=== PATIENT | female | born 1990 | race Two or more races ===

== ENCOUNTER 2023-10-03 13:23 | Emergency (ER) | payer OTHER ==
[~2023-10-03] VITALS: Ht 152.4 cm; Wt 64.9 kg
[2023-10-03 15:26] LABS: HEMATOCRIT 37.4 % (36.0-45.00); HEMOGLOBIN 13.2 g/dL (12.0-15.00); MEAN CELL VOLUME 88.3 fL (80.00-100.00); MEAN CORPUSCULAR HEMOGLOBIN 31.2 pg (27.00-32.0); MEAN CORPUSCULAR HGB CONC 35.3 g/dl (32.0-36.0); PLATELET COUNT 346 K/uL (150-450); RED BLOOD COUNT 4.24 M/uL (4.00-6.00); RED CELL DISTRIBUTION WIDTH 13.6 % (11.5-14.5)
[2023-10-03 15:39] LABS: PH,URINE 5.5 (5.0-8.0); URINE APPEARANCE Clear; URINE BILIRRUBIN Negative (NEGATIVE); URINE BLOOD Negative; URINE COLOR Dark Yellow; URINE GLUCOSE Negative (NEGATIVE); URINE LEUKOCYTE Negative; URINE NITRATE Negative; URINE PROTEIN Negative (NEGATIVE); URINE UROBILINOGEN 0.2 E.U./dl
[2023-10-03 15:43] LABS: URINE BACTERIA 342.6 uL (0.0-1933); URINE EPITHELIAL CELLS 3.2 uL (0.0-38.8); URINE RBC 8.3 uL (0.0-20.8); URINE WBC 6.9 uL (0.0-23.2)
[2023-10-03 15:51] LABS: INR 1.02; PARTIAL THROMBOPLASTIN TIME 30.3 SECONDS (22.0-34.0); PROTHROMBIN TIME 10.7 SECONDS (9.0-11.5)
[2023-10-03 16:10] LABS: CALCIUM 9.6 mg/dL (8.5-10.1); CREATININE SERUM 0.52 mg/dL (0.55-1.02); GFR 137.54; POTASSIUM 3.74 mEq/L (3.5-5.1)
[2023-10-03] MEDS ORDERED: ONDANSETRON HCL4 MG PO (18:11)
== END 2023-10-03 18:37 | disposition home or self-care (01) ==
LOC: ER 13:25
PROVIDERS: Nurse Practitioner Family
DX: O20.8 Other hemorrhage in early pregnancy (principal); Z3A.01 Less than 8 weeks gestation of pregnancy; R10.2 Pelvic and perineal pain